=== PATIENT | female | born 1965 | race Caucasian/White ===

== ENCOUNTER 2016-10-03 09:15 | Emergency (ER) | payer OTHER ==
[2016-10-03 09:21] VITALS: BP 143/78; PULSE 88; TEMP 97.8; BMI 30.7
[2016-10-03] MEDS ORDERED: IBUPROFEN 600 MG TABLET (FP) PO ONE ×2 (09:46→09:49)
--- NOTE | 2016-10-03 10:06 | PDOC ---
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 no head trauma. Past History - Past Medical History Allergies/Adverse Reactions: Allergies Allergy/AdvReac Type Severity Reaction Status Date / Time No Known Allergies Allergy Verified 10/03/16 09:18 Home Medications: Ambulatory Orders NK [No Known Home Medication] 10/03/16 Other medical history: none - Psycho/Social/Smoking Cessation Hx Anxiety: No Suicidal Ideation: No Smoking History: Never smoked Have you smoked in the past 12 months: No Information on smoking cessation initiated: No Hx Alcohol Use: No Drug/Substance Use Hx: No Substance Use Type: None *Physical Exam - Vital Signs Last Vital Signs Temp Pulse Resp BP Pulse Ox 97.8 F 88 18 143/78 100 10/03/16 09:19 10/03/16 09:19 10/03/16 09:19 10/03/16 09:19 10/03/16 09:19 - Physical Exam General Appearance: Yes: Nourished, Appropriately Dressed HEENT: positive: EOMI, ARIES Neck: negative: Tender Respiratory/Chest: positive: Lungs Clear, Normal Breath Sounds Cardiovascular: positive: Regular Rhythm, Regular Rate Gastrointestinal/Abdominal: positive: Normal Bowel Sounds, Soft Extremity: positive: Normal Capillary Refill, Inflammation (left knee tender to touch medially with swelling to proximal tibia ) Integumentary: positive: Normal Color, Dry, Warm Neurologic: positive: Fully Oriented, Alert, Normal Mood/Affect, Normal Response , Motor Strength 5/5 ED Treatment Course - RADIOLOGY Radiology Studies Ordered: Category Date Time Status KNEE 3 POS-LEFT [RAD] Stat Radiology 10/03/16 09:46 Ordered - Medications Given in the ED: ED Medications Discontinued Medications Generic Name Dose Route Start Last Admin Trade Name Freq PRN Reason Stop Dose Admin Ibuprofen 600 mg 10/03/16 09:46 10/03/16 09:50 Motrin - PO 10/03/16 09:47 600 mg ONCE ONE Administration Medical Decision Making - Medical Decision Making 10/03/16 10:09 cc: slip and fall on left knee no gross deformity nv intact with swelling to the left knee will xray to r/o fracture *DC/Admit/Observation/Transfer Diagnosis at time of Disposition: Knee contusion Qualifiers: Encounter type: initial encounter Laterality: left Qualified Code(s): S80.02XA - Contusion of left knee, initial encounter - Discharge Dispostion Disposition: HOME Condition at time of disposition: Good - Patient Instructions Additional Instructions: apply ice every 2hrs for 15 minutes elevate your knee up on pillows take motrin 600mg every 6hrs for pain as needed for the next few days it may feel sore follow with the orthopedist for follow up if symptoms worsen or persist - Post Discharge Activity Work/School Note: Back to Work
== END 2016-10-03 10:17 | disposition home or self-care (01) ==
LOC: JERFT 09:15
DX: S80.02XA Contusion of left knee, initial encounter (principal); W18.39XA Other fall on same level, initial encounter; Y93.9 Activity, unspecified; Y92.811 Bus as the place of occurrence of the external cause; Y99.0 Civilian activity done for income or pay
CPT/HCPCS: 73562-TC-LT; 99281-25

== ENCOUNTER 2017-09-28 10:35 | Emergency (ER) | payer OTHER ==
[2017-09-28 10:59] VITALS: TEMP 98.2; BMI 31.1
--- NOTE | 2017-09-28 11:09 | PDOC ---
History of Present Illness - General Stated Complaint: SOB Time Seen by Provider: 09/28/17 11:06 History Source: Patient Exam Limitations: No Limitations - History of Present Illness Initial Comments: CHIEF COMPLAINT: 52 y/o afebrile, tachycardic female c/o chest pain, cough and fever x 2 days. HISTORY OF PRESENT ILLNESS: The patient states she has chest pain with dry cough but points to her sternum and describes the pain as burning. She also admits to fever last night. She denies earache, sore throat, n/v/d, abd pain, back pain, radiation of chest pain, hematuria, dysuria. She did have the flu shot this year. Vital signs on arrival are notable for pulse of 101. REVIEW OF SYSTEMS: GENERAL/CONSTITUTIONAL: +fever. No weakness. No weight change. HEAD, EYES, EARS, NOSE AND THROAT: No change in vision. No ear pain or discharge. No sore throat. CARDIOVASCULAR: +chest pain. No shortness of breath. RESPIRATORY: +dry cough. No wheezing or hemoptysis. GASTROINTESTINAL: No abd pain, nausea, vomiting, diarrhea. GENITOURINARY: No dysuria, frequency, or change in urination. MUSCULOSKELETAL: No joint or muscle swelling or pain. No neck or back pain. SKIN: No rash or easy bruising. NEUROLOGIC: No headache, vertigo, loss of consciousness, or loss of sensation. PHYSICAL EXAM: GENERAL: The patient is awake, alert, and fully oriented, in no acute distress. She is non toxic but ill appearing. HEAD: Normal with no signs of trauma. ENT: Pupils equal, round and reactive to light, extraocular movements intact, sclera anicteric, conjunctiva clear. LUNGS: Clear to auscultation bilaterally. Normal excursion. No respiratory distress or use of accessory muscles. CV: rapid rate/regular rhythm, S1/S2, no MRG. Cap refill < 2 sec. CHEST WALL: No reproducible pain with palpation of anterior chest. ABDOMEN: Soft, non-distended, non-tender even to deep palpation, no hepatomegaly or splenomegaly, no masses. EXTREMITIES: Normal range of motion, no edema. NEUROLOGICAL: Normal speech, normal gait. CN II-XII grossly intact. PSYCH: Normal mood, normal affect. SKIN: Warm, dry, normal turgor, no rashes or lesions noted. Past History - Past Medical History Allergies/Adverse Reactions: Allergies Allergy/AdvReac Type Severity Reaction Status Date / Time No Known Allergies Allergy Verified 09/28/17 10:57 Home Medications: Ambulatory Orders Benzonatate [Tessalon Pearls -] 100 mg PO TID #15 capsule 09/28/17 COPD: No - Suicide/Smoking/Psychosocial Hx Smoking History: Never smoked Have you smoked in the past 12 months: No Information on smoking cessation initiated: No Hx Alcohol Use: No Drug/Substance Use Hx: No Substance Use Type: None *Physical Exam - Vital Signs Last Vital Signs Temp Pulse Resp BP Pulse Ox 98.2 F 101 H 18 119/78 98 09/28/17 10:35 09/28/17 10:35 09/28/17 10:35 09/28/17 10:35 09/28/17 10:35 Heart Score/ECG Review - ECG Intrepretation Comment:: Twelve-lead EKG was performed and reviewed by Dr Madsen. There is normal sinus rhythm with a normal rate. The axis is normal. The intervals are normal. There are no ST or T wave abnormalities. Impression: Normal twelve-lead EKG ED Treatment Course - LABORATORY CBC & Chemistry Diagram: 09/28/17 12:02 09/28/17 12:02 Medical Decision Making - Medical Decision Making A/P: 52 y/o female with chest pain and flu like symptoms. Plan is as follows: 1. Labs 2. EKG 3. CXR 4. Influenza 5. PO tylenol 6. IV pepcid Influenza - Negative Labs unremarkable CXR IMPRESSION: Unremarkable exam HR now 88bpm ordered 2nd troponin and IV toradol Patient states she is feeling better after IV toradol. 2nd troponin negative. Vital signs improved - no longer tachycardic. Will discharge with dx of flu like symptoms and suggested supportive care. instructed the patient to f/u with her doctor within 2 weeks and return to the ER with any worsening or concerning symptoms. The patient verbalizes understanding of all instructions, has no further questions and is awaiting discharge. 0 *DC/Admit/Observation/Transfer Diagnosis at time of Disposition: Flu-like symptoms, Pleuritic chest pain, Cough - Discharge Dispostion Disposition: HOME Condition at time of disposition: Improved - Prescriptions Prescriptions: Benzonatate [Tessalon Pearls -] 100 mg PO TID #15 capsule - Referrals - Patient Instructions Printed Discharge Instructions: [facility] for Cough -- Adult, DI for Influenza -- Adult, DI for Pleurisy Additional Instructions: Discharge Instructions: -You have flu like symptoms but your flu swab was negative -All of your labs were normal. -Your EKG was normal -Your chest xray was normal -A prescription for cough medicine has been sent to your pharmacy. -Please drink plenty of fluids and get lots of rest -REturn to the ER with any worsening or concerning symptoms - Post Discharge Activity Forms/Work/School Notes: Back to Work
[2017-09-28] MEDS ORDERED: ACETAMINOPHEN 325 MG TABLET (FP) PO ONE (11:21)
[2017-09-28] MEDS ORDERED: SODIUM CHLORIDE 1,000 ML IV STA (11:21)
[2017-09-28] MEDS ORDERED: FAMOTIDINE IV 20 MG/12 ML VIAL IVPUSH ONE (11:43)
[2017-09-28] MEDS ORDERED: FAMOTIDINE 20 MG/50 ML IVPB 20 MG/50 ML MG IVPB ONE (11:54)
[2017-09-28] MEDS ORDERED: ACETAMINOPHEN 325 MG TABLET (FP) ONE (11:54)
[2017-09-28 12:17] LABS: BASO % 0.7 % (0-2.0); EOS % 0.6 % (0-4.5); HEMOGLOBIN 13.1 GM/dL (10.7-15.3); MEAN CELL VOLUME 84.4 fl (80-96); MEAN PLT VOLUME 9.6 fl (7.5-11.1); MONO % 9.6 % (3.8-10.2); NEUT % 78.1 % (42.8-82.8); PLATELET COUNT 181 K/MM3 (134-434); RBC 4.86 M/mm3 (3.60-5.2); RDW 14.3 % (11.6-15.6); WHITE BLOOD COUNT 6.3 K/mm3 (4.0-10.0)
[2017-09-28 12:29] LABS: ALBUMIN 4.1 g/dl (3.4-5.0); ANION GAP 8 (8-16); BILIRUBIN,TOTAL 0.4 mg/dL (0.2-1.0); BLOOD UREA NITROGEN 7 mg/dL (7-18); CALCIUM 8.4 mg/dL (8.5-10.1); CHLORIDE 106 mmol/L (98-107); CO2 27 mmol/L (21-32); CREATININE 0.9 mg/dL (0.55-1.02); GLUCOSE,RANDOM 94 mg/dL (74-106); POTASSIUM 3.7 mmol/L (3.5-5.1); SGOT/AST 43 U/L (15-37); SGPT/ALT 44 U/L (12-78); SODIUM 141 mmol/L (136-145); TOT PROT 7.7 g/dl (6.4-8.2)
[2017-09-28 12:32] LABS: ALK PHOS 116 U/L (45-117)
[2017-09-28] MEDS ORDERED: KETOROLAC TROMETHAMINE 30 MG/1 ML VIAL IVPUSH ONE (13:57)
[2017-09-28] MEDS ORDERED: KETOROLAC TROMETHAMINE 30 MG/1 ML VIAL ONE (14:19)
[2017-09-28 17:06] VITALS: BP 110/62; PULSE 82
--- NOTE | 2017-09-30 10:59 | EKG ---
Test Reason : Blood Pressure : / mmHG Vent. Rate : 088 BPM Atrial Rate : 088 BPM P-R Int : 162 ms QRS Dur : 072 ms QT Int : 362 ms P-R-T Axes : 036 -03 015 degrees QTc Int : 438 ms NORMAL SINUS RHYTHM MINIMAL VOLTAGE CRITERIA FOR LVH, MAY BE NORMAL VARIANT BORDERLINE ECG NO PREVIOUS ECGS AVAILABLE Confirmed by PRASHANTH ZHU MD ([id number]) on 09/30/2017 10:59:03 AM Referred By: Confirmed By:PRASHANTH ZHU MD
== END 2017-09-28 17:13 | disposition home or self-care (01) ==
LOC: JER 10:35
PROC: 3E0337Z Introduction of Electrolytic and Water Balance Substance into Peripheral Vein, Percutaneous Approach (ICD-10-PCS; principal; 2017-09-28)
PROC: 3E033GC Introduction of Other Therapeutic Substance into Peripheral Vein, Percutaneous Approach (ICD-10-PCS; 2017-09-28)
PROC: 3E0333Z Introduction of Anti-inflammatory into Peripheral Vein, Percutaneous Approach (ICD-10-PCS; 2017-09-28)
DX: J11.1 Influenza due to unidentified influenza virus with other respiratory manifestations (principal); R07.81 Pleurodynia
CPT/HCPCS: 36415; 71046-TC-FY; 80053; 82550; 84484; 85025; 87804; 93005; 93010; 96361; 96374; 96375; 99283-25

== ENCOUNTER 2017-11-20 14:48 | Emergency (ER) | payer OTHER ==
[2017-11-20 14:52] VITALS: BP 129/74; PULSE 94; TEMP 98.2; BMI 31.1
--- NOTE | 2017-11-20 14:53 | PDOC ---
Rapid Medical Evaluation Time Seen by Provider: 11/20/17 14:49 Medical Evaluation: Allergies Allergy/AdvReac Type Severity Reaction Status Date / Time No Known Allergies Allergy Verified 11/20/17 14:49 11/20/17 14:49 The patient presents with a chief complaint of: RLQ pain since last night. Admits to fevers and chills at home. Also admits to nausea and dysuria but not vomiting. I have performed a brief in-person evaluation of this patient; Pertinent physical exam findings: ambulatory, in no respiratory distress, Suprapubic pain and RLQ, RUQ pain I have ordered the following: CBC, CMP, PT/INR, Lipase, UA, UC, urine preg The patient will proceed to the ED for further evaluation.
[2017-11-20 15:24] LABS: BASO % 0.7 % (0-2.0); EOS % 0.5 % (0-4.5); HEMATOCRIT 36.8 % (32.4-45.2); HEMOGLOBIN 12.4 GM/dL (10.7-15.3); MCH 28.5 pg (25.7-33.7); MCHC 33.8 g/dl (32.0-36.0); MEAN CELL VOLUME 84.4 fl (80-96); MEAN PLT VOLUME 9.6 fl (7.5-11.1); MONO % 11.3 % (3.8-10.2); NEUT % 75.5 % (42.8-82.8); PLATELET COUNT 206 K/MM3 (134-434); RBC 4.36 M/mm3 (3.60-5.2); RDW 14.5 % (11.6-15.6); WHITE BLOOD COUNT 7.8 K/mm3 (4.0-10.0)
[2017-11-20 15:28] LABS: URINE APPEARANCE CLEAR; URINE BILIRUBIN NEGATIVE (<2.0 mg/dL); URINE BLOOD 1+ (NEGATIVE); URINE COLOR YELLOW; URINE GLUCOSE (UA) NEGATIVE (NEGATIVE); URINE KETONE TRACE (NEGATIVE); URINE LEUK ESTERASE NEGATIVE (NEGATIVE); URINE NITRITE NEGATIVE (NEGATIVE); URINE PROTEIN NEGATIVE (NEGATIVE); URINE UROBILINOGEN NEGATIVE mg/dL (0.2-1.0)
[2017-11-20 15:50] LABS: EPI CELLS FEW /HPF (FEW); URINE MUCUS RARE
[2017-11-20 15:52] LABS: ALBUMIN 4.2 g/dl (3.4-5.0); ALK PHOS 81 U/L (45-117); ANION GAP 8 (8-16); BILIRUBIN,TOTAL 0.8 mg/dL (0.2-1.0); BLOOD UREA NITROGEN 18 mg/dL (7-18); CALCIUM 8.9 mg/dL (8.5-10.1); CHLORIDE 110 mmol/L (98-107); CO2 24 mmol/L (21-32); CREATININE 1.2 mg/dL (0.55-1.02); GLUCOSE,RANDOM 85 mg/dL (74-106); POTASSIUM 3.9 mmol/L (3.5-5.1); SGOT/AST 19 U/L (15-37); SGPT/ALT 16 U/L (12-78); SODIUM 142 mmol/L (136-145); TOT PROT 7.1 g/dl (6.4-8.2)
[2017-11-20 16:01] LABS: INR 1.04 (0.82-1.09); PROTHROMBIN TIME (PATIENT) 11.7 SEC (9.98-11.88)
[2017-11-20] MEDS ORDERED: KETOROLAC TROMETHAMINE 30 MG/1 ML VIAL IVPUSH ONE (17:17)
[2017-11-20] MEDS ORDERED: SODIUM CHLORIDE 1,000 ML IV STA (17:17)
[2017-11-20] MEDS ORDERED: morphine CARPU-JECT 4 MG/1 ML DISP.SYRIN IVPUSH ONE (17:17)
--- NOTE | 2017-11-20 17:17 | PDOC ---
History of Present Illness - General History Source: Patient Exam Limitations: No Limitations - History of Present Illness Initial Comments: 11/20/17 18:08 The patient is a 52-year-old female, with a significant past medical history of hyperlipidemia, who presents to the ED with right-sided abdominal pain that began last night at 7:30 PM after patient arrived home from work. The patient states that the pain is constant, comparable to labor pain, 10/10 in severity, with radiation to the right side of her back, exacerbated with ambulation, and associated with nausea and dysuria. The patient denies any fever, chills, or diarrhea. Allergies: NKA Surgical History: Denies Social History: Denies PCP: Dr. Mehdi Walters <Isabelle Keen - Last Filed: 11/20/17 18:08> - General History Source: Patient Exam Limitations: No Limitations <Sandhya Rodriguez - Last Filed: 11/20/17 18:16> - General Chief Complaint: Pain Stated Complaint: LOWER ABD PAIN Time Seen by Provider: 11/20/17 14:49 Past History <Isabelle Keen - Last Filed: 11/20/17 18:08> - Past Medical History COPD: No - Suicide/Smoking/Psychosocial Hx Smoking History: Never smoked Have you smoked in the past 12 months: No Information on smoking cessation initiated: No Hx Alcohol Use: No Drug/Substance Use Hx: No Substance Use Type: None <Sandhya Rodriguez - Last Filed: 11/20/17 18:16> - Past Medical History Allergies/Adverse Reactions: Allergies Allergy/AdvReac Type Severity Reaction Status Date / Time No Known Allergies Allergy Verified 11/20/17 14:49 Home Medications: Ambulatory Orders Benzonatate [Tessalon Pearls -] 100 mg PO TID #15 capsule 09/28/17 Cetirizine HCl [Zyrtec -] 10 mg PO DAILY 09/28/17 Cholecalciferol (Vitamin D3) [Vitamin D3 -] 400 unit PO DAILY 09/28/17 Cyanocobalamin (Vitamin B-12) [Vitamin B12] 2,500 mcg PO DAILY 09/28/17 Oxycodone HCl/Acetaminophen [Percocet 5-325 mg Tablet -] 1 tab PO TID PRN #12 tablet MDD 3 11/20/17 Tamsulosin HCl [Flomax] 0.4 mg PO HS #10 capsule 11/20/17 Review of Systems - Review of Systems Able to Perform ROS?: Yes Comments:: 11/20/17 18:08 GENERAL/CONSTITUTIONAL: No: fever, chills, weakness, loss of appetite. HEAD, EYES, EARS, NOSE AND THROAT: No: change in vision, ear pain, discharge, sore throat, throat swelling. CARDIOVASCULAR: No: chest pain, lightheadedness, palpitations, syncope RESPIRATORY: No: cough, shortness of breath, wheezing, hemoptysis, stridor. GASTROINTESTINAL: (+)right-sided abdominal pain, nausea. No: vomiting, diarrhea , rectal bleeding, constipation. GENITOURINARY: (+)Right-sided flank pain. No: dysuria, hematuria, frequency, urgency, MUSCULOSKELETAL: No: neck pain, joint pain, muscle swelling or pain SKIN AND BREASTS: No: lesions, pallor, rash or easy bruising. NEUROLOGIC: No: headache, vertigo, paresthesias, weakness ENDOCRINE: No: unexplained weight gain or loss HEMATOLOGIC/LYMPHATIC: No: anemia, easy bleeding, swelling nodes <Isabelle Keen - Last Filed: 11/20/17 18:08> *Physical Exam - Vital Signs Last Vital Signs Temp Pulse Resp BP Pulse Ox 98.2 F 94 H 18 129/74 100 11/20/17 14:50 11/20/17 14:50 11/20/17 14:50 11/20/17 14:50 11/20/17 14:50 - Physical Exam Comments: 11/20/17 18:11 GENERAL: The patient is in no acute distress. HEAD: Normal with no signs of trauma. EYES: PERRLA, EOMI, sclera anicteric, conjunctiva clear. ENT: Ears normal, nares patent, oropharynx clear without exudates. Moist mucous membranes. NECK: Normal range of motion, supple without lymphadenopathy, JVD, or masses. LUNGS: Breath sounds equal, clear to auscultation bilaterally. No wheezes, and no crackles. HEART:Regular rate and rhythm, normal S1 and S2 without murmur, rub or gallop. ABDOMEN: (+)Right-sided abdominal tenderness. Soft, normoactive bowel sounds. No guarding, no rebound. EXTREMITIES: Normal range of motion, no edema. No clubbing or cyanosis. No erythema, or tenderness. NEUROLOGICAL: Cranial nerves II through XII grossly intact. Normal speech. No focal neurological deficits. MUSCULOSKELETAL: Back non-tender to palpation, no CVA tenderness SKIN: Warm, Dry, normal turgor, no rashes or lesions noted. <Isabelle Keen - Last Filed: 11/20/17 18:08> - Vital Signs Last Vital Signs Temp Pulse Resp BP Pulse Ox 98.2 F 94 H 18 129/74 100 11/20/17 14:50 11/20/17 14:50 11/20/17 14:50 11/20/17 14:50 11/20/17 14:50 <Sandhya Rodriguez - Last Filed: 11/20/17 18:16> ED Treatment Course - LABORATORY CBC & Chemistry Diagram: 11/20/17 15:02 11/20/17 15:02 - ADDITIONAL ORDERS Additional order review: Laboratory Results 11/20/17 11/20/17 11/20/17 15:02 15:02 15:02 PT with INR INR Sodium 142 Potassium 3.9 Chloride 110 H Carbon Dioxide 24 Anion Gap 8 BUN 18 Creatinine 1.2 H Creat Clearance w eGFR 46.82 Random Glucose 85 Calcium 8.9 Total Bilirubin 0.8 D AST 19 ALT 16 Alkaline Phosphatase 81 Total Protein 7.1 Albumin 4.2 Lipase 222 Urine Color Urine Appearance Urine pH Ur Specific [place] Urine Protein Urine Glucose (UA) Urine Ketones Urine Blood Urine Nitrite Urine Bilirubin Urine Urobilinogen Ur Leukocyte Esterase Urine WBC (Auto) Urine RBC (Auto) Ur Epithelial Cells Urine Mucus Urine HCG, Qual Negative 11/20/17 11/20/17 15:02 15:02 PT with INR 11.70 INR 1.04 Sodium Potassium Chloride Carbon Dioxide Anion Gap BUN Creatinine Creat Clearance w eGFR Random Glucose Calcium Total Bilirubin AST ALT Alkaline Phosphatase Total Protein Albumin Lipase Urine Color Yellow Urine Appearance Clear Urine pH 5.0 Ur Specific [place] 1.031 Urine Protein Negative Urine Glucose (UA) Negative Urine Ketones Trace H Urine Blood 1+ H Urine Nitrite Negative Urine Bilirubin Negative Urine Urobilinogen Negative Ur Leukocyte Esterase Negative Urine WBC (Auto) 1 Urine RBC (Auto) 13 Ur Epithelial Cells Few Urine Mucus Rare Urine HCG, Qual 11/20/17 15:02 RBC 4.36 MCV 84.4 MCHC 33.8 RDW 14.5 MPV 9.6 Neutrophils % 75.5 Lymphocytes % 12.0 Monocytes % 11.3 H Eosinophils % 0.5 Basophils % 0.7 - RADIOLOGY Radiology Studies Ordered: 11/20/17 18:[address] was reviewed by Dr. Rodriguez and over-read by Radiology. Impression: A 3 mm right ureterovesical junction calculus with moderate right hydroureteronephrosis. - Medications Given in the ED: ED Medications Discontinued Medications Generic Name Dose Route Start Last Admin Trade Name Angel PRN Reason Stop Dose Admin Ketorolac Tromethamine 30 mg 11/20/17 17:17 11/20/17 17:29 Toradol Injection - IVPUSH 11/20/17 17:18 30 mg ONCE ONE Administration Morphine Sulfate 4 mg 11/20/17 17:17 11/20/17 17:29 Morphine Injection - IVPUSH 11/20/17 17:18 4 mg ONCE ONE Administration <Isabelle Keen - Last Filed: 11/20/17 18:08> - LABORATORY CBC & Chemistry Diagram: 11/20/17 15:02 11/20/17 15:02 - ADDITIONAL ORDERS Additional order review: Laboratory Results 11/20/17 11/20/17 11/20/17 15:02 15:02 15:02 PT with INR INR Sodium 142 Potassium 3.9 Chloride 110 H Carbon Dioxide 24 Anion Gap 8 BUN 18 Creatinine 1.2 H Creat Clearance w eGFR 46.82 Random Glucose 85 Calcium 8.9 Total Bilirubin 0.8 D AST 19 ALT 16 Alkaline Phosphatase 81 Total Protein 7.1 Albumin 4.2 Lipase 222 Urine Color Urine Appearance Urine pH Ur Specific [place] Urine Protein Urine Glucose (UA) Urine Ketones Urine Blood Urine Nitrite Urine Bilirubin Urine Urobilinogen Ur Leukocyte Esterase Urine WBC (Auto) Urine RBC (Auto) Ur Epithelial Cells Urine Mucus Urine HCG, Qual Negative 11/20/17 11/20/17 15:02 15:02 PT with INR 11.70 INR 1.04 Sodium Potassium Chloride Carbon Dioxide Anion Gap BUN Creatinine Creat Clearance w eGFR Random Glucose Calcium Total Bilirubin AST ALT Alkaline Phosphatase Total Protein Albumin Lipase Urine Color Yellow Urine Appearance Clear Urine pH 5.0 Ur Specific [place] 1.031 Urine Protein Negative Urine Glucose (UA) Negative Urine Ketones Trace H Urine Blood 1+ H Urine Nitrite Negative Urine Bilirubin Negative Urine Urobilinogen Negative Ur Leukocyte Esterase Negative Urine WBC (Auto) 1 Urine RBC (Auto) 13 Ur Epithelial Cells Few Urine Mucus Rare Urine HCG, Qual 11/20/17 15:02 RBC 4.36 MCV 84.4 MCHC 33.8 RDW 14.5 MPV 9.6 Neutrophils % 75.5 Lymphocytes % 12.0 Monocytes % 11.3 H Eosinophils % 0.5 Basophils % 0.7 - RADIOLOGY Radiology Studies Ordered: Category Date Time Status SPIRAL- RENAL-STONE CT [CT] Stat CT Scan 11/20/17 16:33 Ordered <Sandhya Rodriguez - Last Filed: 11/20/17 18:16> Medical Decision Making - Medical Decision Making Missed dialysis and otherwise healthy 52-year-old female presented to emergency department with a complaint of right-sided abdominal pain. Patient states her symptoms began yesterday at approximately 7 or 8 PM. Located in the right side. She describes the pain as labor pains. Currently she reports her pain is 9/10. No fevers, chills. Patient says is nauseous, no vomiting. No diarrhea. No prior episodes like this. Patient feels irritation when she urinates, no hematuria Differential diagnosis includes but is not limited to: Nephrolithiasis/ureterolithiasis, pyelonephritis, appendicitis, cholecystitis. Will do: Basic labs, UA, spiral CT 11/20/17 16:35 Laboratory Tests 11/20/17 11/20/17 11/20/17 15:02 15:02 15:02 WBC 7.8 Hgb 12.4 Hct 36.8 Plt Count 206 INR 1.04 Sodium Potassium Chloride Carbon Dioxide BUN Creatinine Random Glucose Albumin Lipase Urine Blood 1+ H Urine Nitrite Negative Ur Leukocyte Esterase Negative Urine WBC (Auto) 1 Urine RBC (Auto) 13 Urine HCG, Qual 11/20/17 11/20/17 11/20/17 15:02 15:02 15:02 WBC Hgb Hct Plt Count INR Sodium 142 Potassium 3.9 Chloride 110 H Carbon Dioxide 24 BUN 18 Creatinine 1.2 H Random Glucose 85 Albumin 4.2 Lipase 222 Urine Blood Urine Nitrite Ur Leukocyte Esterase Urine WBC (Auto) Urine RBC (Auto) Urine HCG, Qual Negative 11/20/17 17:44 11/20/17 17:57 Upon reassessment, patient states her pain is 4/10. Still getting IV fluids. Will plan to discharge to home. Last patient follow up with her primary care physician. Last patient follow up with urology as well. No evidence of urinary tract infection. Will not give antibiotics Clinical impression: Ureterolithiasis, initial presentation <Sandhya Rodriguez - Last Filed: 11/20/17 18:16> *DC/Admit/Observation/Transfer - Attestations Scribe Attestion: 11/20/17 18:11 Documentation prepared by Isabelle Keen, acting as medical anthropology director for Sandhya Rodriguez MD. <Isabelle Keen - Last Filed: 11/20/17 18:08> - Discharge Dispostion Admit: No <Sandhya Rodriguez - Last Filed: 11/20/17 18:16> Diagnosis at time of Disposition: Ureterolithiasis - Discharge Dispostion Disposition: HOME Condition at time of disposition: Stable - Prescriptions Prescriptions: Oxycodone HCl/Acetaminophen [Percocet 5-325 mg Tablet -] 1 tab PO TID PRN #12 tablet MDD 3 PRN Reason: Severe Pain Tamsulosin HCl [Flomax] 0.4 mg PO HS #10 capsule - Referrals Referrals: Mehdi Walters [Primary Care Provider] - Jim Dumont MD [Staff Physician] - - Patient Instructions Printed Discharge Instructions: Kidney Stones -- Adult, DI for Kidney Stones Additional Instructions: Ms Araujo Andre por venir a la kamala de emergencia hoy Por favor, revise herman escner CT Usted tiene un clculo renal que est a punto de pasar a la vejiga Por favor, tome analgsicos segn lo prescrito Por favor, controle si tiene fiebre o escalofros Por favor, regrese a la kamala de emergencias para mayor dolor, vmitos, incapacidad para comer o beber, fiebres Por favor vandana un seguimiento con herman mdico de atencin primaria y herman urlogo Por favor, colar herman orina Thank you for coming in to the ER today Please review your CT scan You have a kidney stone which is about to pass into the bladder Please take pain medications as prescribed Please monitor yourself for fevers or chills Please return to the ER for increased pain, vomiting, inability to eat or drink , fevers Please follow up with your primary care physician and your Urologist Please strain your urine Print Language: SOU[place] KORE[place] - Post Discharge Activity Forms/Work/School Notes: Back to Work
[2017-11-20] MEDS ORDERED: KETOROLAC TROMETHAMINE 30 MG/1 ML VIAL ONE (17:29)
[2017-11-20] MEDS ORDERED: morphine SULFATE 4 MG/ML VIAL ONE (17:29)
== END 2017-11-20 19:26 | disposition home or self-care (01) ==
LOC: JER 14:48
PROC: 3E033NZ Introduction of Analgesics, Hypnotics, Sedatives into Peripheral Vein, Percutaneous Approach (ICD-10-PCS; principal; 2017-11-20)
PROC: 3E0333Z Introduction of Anti-inflammatory into Peripheral Vein, Percutaneous Approach (ICD-10-PCS; 2017-11-20)
DX: N20.1 Calculus of ureter (principal)
CPT/HCPCS: 36415; 74176; 80053; 81003; 81015; 83690; 84703; 85025; 85610; 87086; 96374; 96375; 99282-25; J7030

== ENCOUNTER 2018-02-22 08:33 | Day surgery (SDC) | payer OTHER ==
[2018-02-19 14:52] VITALS: BMI 30.7
[2018-02-22] MEDS ORDERED: MIDAZOLAM HCL 2 MG/2 ML SINGLE DOSE VIAL ONE (13:03)
[2018-02-22] MEDS ORDERED: PROPOFOL 20 ML ONE (13:03)
[2018-02-22] MEDS ORDERED: LIDOCAINE HCL/PF 2% SDV 5ML VIAL ONE (13:03)
[2018-02-22] MEDS ORDERED: LIDOCAINE HCL 2% (20ML MULTI-DOSE VIAL) NR ONE (13:09)
[2018-02-22] MEDS ORDERED: ONDANSETRON 4 MG/2 ML VIAL IVPUSH PRN (13:57)
[2018-02-22] MEDS ORDERED: oxyCODONE HCL 5 MG TABLET PO PRN (13:57)
[2018-02-22] MEDS ORDERED: ACETAMINOPHEN 325 MG TABLET (FP) PO PRN (13:57)
[2018-02-22] MEDS ORDERED: LACTATED RINGERS SOLUTION 1,000 ML IV SCH (14:00)
[2018-02-22 14:14] VITALS: TEMP 98
--- NOTE | 2018-02-22 14:57 | OP ---
Operative Note - Note: Operative Date: 02/22/18 Pre-Operative Diagnosis: right renal colic/right ureteral stone Operation: cystoscopy/right retrograde pyelogram/right ureteroscopy Findings: mild right hydro at pelvic brim with stone fragments in distal ureter Post-Operative Diagnosis: Same as Pre-op Surgeon: Juan M Nevarez Anesthesia: General
[2018-02-22 20:07] VITALS: BP 110/66; PULSE 68
--- NOTE | 2018-02-22 22:12 | OP ---
DATE OF OPERATION: 02/22/2018 PREOPERATIVE DIAGNOSIS: Right renal colic and right ureteral stone. POSTOPERATIVE DIAGNOSIS: Right renal colic and right ureteral stone. ATTENDING: Candelario Clements MD ANESTHESIA: General. PROCEDURE: Cystoscopy, right retrograde pyelogram, and right ureteroscopy. DESCRIPTION OF OPERATION: The patient had a right ureteral stone with a history of hydronephrosis. The patient has not passed the stone after 3 weeks of observation. The patient continues with renal colic. The patient presents to the operating room and is evaluated for an obstructing right ureteral stone. She is placed in a supine position on the operating room table. Anesthesia is administered as is preoperative antibiotics. At this point, the patient was placed in the dorsal lithotomy position and prepped and draped in the usual sterile manner. Cystoscopy was performed, and a filling defect at the distal ureter is noted. There was adequate drainage of a mildly hydronephrotic right kidney. Ureteroscopy was performed in order to determine whether the stone had indeed passed. There were multiple stone fragments noted which were too small to basket. The patient was left without a stent and will be observed postoperatively. The patient had passed the stone in fragments, and the subsequent edema is contributing to the residual hydronephrosis. Patient will be followed postoperatively with a check of her renal function and a sonogram in 3 months. Patient tolerated the procedure very well, and disposition was to recovery room. CANDELARIO CLEMENTS M.D. /[id number]
== END 2018-02-22 15:30 | disposition home or self-care (01) ==
LOC: JASU-SURG 08:33
PROVIDERS: ATTEND Urology
PROC: 0TJ98ZZ Inspection of Ureter, Via Natural or Artificial Opening Endoscopic (ICD-10-PCS; principal; 2018-02-22 11:00)
PROC: BT1DZZZ Fluoroscopy of Right Kidney, Ureter and Bladder (ICD-10-PCS; 2018-02-22 11:00)
DX: N13.2 Hydronephrosis with renal and ureteral calculous obstruction (principal)
CPT/HCPCS: 94760